=== PATIENT | male | born 1935 | race Caucasian/White ===

== ENCOUNTER → 2021-02-12 | Outpatient (CLI) | payer MEDICARE ==
--- NOTE | 2021-02-13 07:50 | RAD ---
INDICATION: Reason: LUMP ON TOP OF HEAD X20 YEARS / Spl. Instructions: GOLFBALL SIZED LUMP ON HEAD / History: COMPARISON: None. FINDINGS: Focused ultrasound images are obtained of the subcutaneous soft tissues of the scalp at the region of concern for lump. 39 x 34 x 20 mm heterogenous masslike structure is identified within the subcutaneous soft tissues wi th some echogenic foci within. IMPRESSION: * Masslike structure seen within the subcutaneous soft tissues of the scalp at the region of concer n with echogenic foci within which could be from calcifications. This has a nonspecific appearance wi th soft tissue neoplasm within the differential as well as alternative causes such as a very complex cystic mass given the lack of significant internal vascularity. If further imaging evaluation is lennox red MRI with and without contrast could BE obtained to better assess the internal architecture. Electronically signed by: Uriah Ellis MD (02/13/2021 7:48 AM) [id number]
== END ==
LOC: US 15:25
PROVIDERS: ATTEND Nurse Practitioner Adult Health
DX: R22.0 Localized swelling, mass and lump, head (principal)
CPT/HCPCS: 76881

== ENCOUNTER 2021-10-10 07:49 | Inpatient (IN) | payer MEDICARE ==
[~2021-10-10] VITALS: Ht 193 cm; Wt 80.5 kg
--- NOTE | 2021-10-10 08:03 | PHYS DOC ---
General Adult EDM: Chief Complaint: SHORTNESS OF BREATH HPI: HPI: Patient is a 86-year-old male coming in for fatigue and shortness of breath. Patient was seen by his primary care 5 days ago for a "cold" and prescribed medications. Patient states he is has been getting worse. Is not vaccinated gets Covid, denies any medical history but takes a "water pill" Review of Systems: Review of Systems: All other systems within normal limits except for as noted in the HPI Physical Exam: PE: Constitutional: Well developed, well nourished, no acute distress, non-toxic appearance. [] HENT: Normocephalic, atraumatic, bilateral external ears normal, nose normal. [] Eyes: PERRLA, conjunctiva normal, no discharge. [] Neck: No rigidity, supple, no stridor. [] Cardiovascular: Regular rate and rhythm, brisk cap refill [] Lungs & Thorax: Non labored symmetric respirations, no tachypnea or respiratory distress [] Abdomen: Soft, nondistended. Skin: Warm, dry, no erythema, no rash. [] Back: Unremarkable Extremities: No deformities, range of motion grossly intact, no lower extremity edema [] Neurologic: Alert and oriented X 3, no focal deficits noted. [] Psychologic: Affect normal, judgement normal, mood normal. [] EKG: EKG: [] Radiology/Procedures: Radiology/Procedures: [place] [address] IMAGING REPORT Signed PATIENT: YAMILET DAVIS ACCOUNT: [id number] : 1935 LOCATION: ER AGE: 86 SEX: M EXAM STATUS: REG ER ORD. PHYSICIAN: KENDRICK SAGASTUME MD REASON: pna PROCEDURE: CHEST AP ONLY EXAMINATION: XR CHEST 1V CLINICAL HISTORY: Pneumonia. EXAM DATE/TIME: 10/10/2021 8:21 AM COMPARISON: None FINDINGS: Lines, Tubes, and Devices: None. Cardiomediastinal Silhouette: Normal heart size. Aortic atherosclerotic calcification. Lungs and Pleura: Multifocal opacities in the mid to lower lung zones, greater on the right. Nonspecific focal left hilar opacity. No evidence of pleural effusion or pneumothorax. Bones and Soft Tissues: Degenerative changes in the thoracic spine. IMPRESSION: Bilateral multifocal airspace disease compatible with viral/atypical pneumonia, greater on the right. Nonspecific focal left hilar opacity, possibly related to enlarged pulmonary artery, hilar adenopathy, or mass. Nonemergent CT could be obtained for further evaluation as indicated. Electronically signed by: Singh Chatterjee DO (10/10/2021 8:50 AM) [facility]ENTERCHATTERJEE DICTATED AND SIGNED BY: SINGH CHATTERJEE DO DATE: 10/10/21846 CC: KENDRICK SAGASTUME MD; RUPERT VAN MD ~MTH0 0 [] Heart Score: C/O Chest Pain: N/A Risk Factors: Risk Factors: DM, Current or recent (<one month) smoker, HTN, HLP, family history of CAD, obesity. Risk Scores: Score 0 - 3: 2.5% MACE over next 6 weeks - Discharge Home Score 4 - 6: 20.3% MACE over next 6 weeks - Admit for Clinical Observation Score 7 - 10: 72.7% MACE over next 6 weeks - Early Invasive Strategies Course & Med Decision Making: Course & Med Decision Making Patient hypoxic with Covid pneumonia, mid to primary care provider, Dr. Sameer Cortez Disclaimer: Diego Disclaimer: This electronic medical record was generated, in whole or in part, using a voice recognition dictation system. Departure Departure: Impression: Primary Impression: COVID Disposition: ADMITTED INPATIENT Admitting Physician: Rupert Van Condition: GUARDED Referrals: RUPERT VAN MD (PCP) KENDRICK SAGASTUME MD Oct 10, 2021 08:03
[2021-10-10] MEDS ORDERED: AZITHROMYCIN 500 MG in IV NORMAL SALINE 250ML 250 ML IV ONE ×2 (08:30→12:30)
[2021-10-10] MEDS ORDERED: DEXAMETHASONE SOD PHOS 10 MG/ML VIAL. IV ONE (08:30)
[2021-10-10 08:46] LABS: BASO % 0 % (0-3); EOS % 0 % (0-3); HEMATOCRIT 46.1 % (39.0-53.0); HEMOGLOBIN 15.5 g/dL (13.0-17.5); LYMPH # 1.4 x10^3/uL (1.0-4.8); LYMPH % 23 % (24-48); MEAN CORPUSCULAR HEMOGLOBIN 31 pg (25-35); MEAN CORPUSCULAR HGB CONC 34 g/dL (31-37); MEAN CORPUSCULAR VOLUME 91 fL (79-100); MONO # 0.5 x10^3/uL (0.0-1.1); MONO % 8 % (0-9); NEUT # 4.2 x10^3uL (1.8-7.7); NEUT % 69 % (31-73); PLATELET COUNT 147 x10^3/uL (140-400); RED BLOOD COUNT 5.05 x10^6/uL (4.30-5.70); RED CELL DISTRIBUTION WIDTH 14.2 % (11.5-14.5); WHITE BLOOD COUNT 6.1 x10^3/uL (4.0-11.0)
--- NOTE | 2021-10-10 08:50 | EKG ---
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
--- NOTE | 2021-10-10 08:53 | RAD ---
EXAMINATION: XR CHEST 1V CLINICAL HISTORY: Pneumonia. EXAM DATE/TIME: 10/10/2021 8:21 AM COMPARISON: None FINDINGS: Lines, Tubes, and Devices: None. Cardiomediastinal Silhouette: Normal heart size. Aortic atherosclerotic calcification. Lungs and Pleura: Multifocal opacities in the mid to lower lung zones, greater on the right. Nonspeci fic focal left hilar opacity. No evidence of pleural effusion or pneumothorax. Bones and Soft Tissues: Degenerative changes in the thoracic spine. IMPRESSION: Bilateral multifocal airspace disease compatible with viral/atypical pneumonia, greater on the right. Nonspecific focal left hilar opacity, possibly related to enlarged pulmonary artery, hilar adenopathy , or mass. Nonemergent CT could be obtained for further evaluation as indicated. Electronically signed by: Singh Keen DO (10/10/2021 8:50 AM) EL
[2021-10-10 08:58] LABS: INFLUENZA A PATIENT NEGATIVE (NEGATIVE); INFLUENZA B PATIENT NEGATIVE (NEGATIVE)
[2021-10-10] MEDS ORDERED: IV NORMAL SALINE 50ML 50 ML ONE (09:02)
[2021-10-10] MEDS ORDERED: AZITHROMYCIN 500 MG VIAL. IV ONE ×2 (09:02→09:08)
[2021-10-10] MEDS ORDERED: cefTRIAXone SODIUM 1 GM VIAL ONE (09:02)
[2021-10-10] MEDS ORDERED: IV NORMAL SALINE 250ML 250 ML ONE ×2 (09:02→09:07)
[2021-10-10 09:08] LABS: ALBUMIN 3.5 g/dL (3.4-5.0); CALCIUM 8.3 mg/dL (8.5-10.1); CREATININE 1.1 mg/dL (0.7-1.3); GFR 63.5; MAGNESIUM 2.2 mg/dL (1.8-2.4); TOTAL BILIRUBIN 0.7 mg/dL (0.2-1.0); TOTAL PROTEIN 6.9 g/dL (6.4-8.2)
[2021-10-10] MEDS ORDERED: IV RINGERS SOLUTION,LACTATED 1,000 ML IV ONE (09:45)
[2021-10-10] MEDS ORDERED: ACETAMINOPHEN 325 MG TABLET PO PRN (09:45)
[2021-10-10] MEDS ORDERED: ONDANSETRON PF 4 MG/2 ML VIAL. IVP PRN (09:45)
[2021-10-10] MEDS ORDERED: REMDESIVIR LOAD in IV NORMAL SALINE 250ML TV IV ONE (10:00)
[2021-10-10] MEDS: IV NORMAL SALINE 1,000ML 1,000 ML IV SCH (10:53)
[2021-10-10] MEDS: POTASSIUM CHLORIDE 20MEQ 100 ML IV SCH ×2 (10:55→14:10)
[2021-10-10] MEDS: IPRATROPIUM/ALBUTEROL 20/100mcg/INH INHALER. INH SCH ×3 (11:46→20:00)
[2021-10-10 12:54] LABS: BILIRUBIN,URINE NEG (NEG); CLARITY,URINE CLEAR; COLOR,URINE YELLOW; GLUCOSE,URINE NEG (NEG); UROBILINOGEN,URINE 0.2 mg/dL (0.2 mg/dL)
[2021-10-10 12:55] LABS: BACTERIA,URINE 0 /HPF (0-FEW); NITRITE,URINE NEG (NEG); RBC,URINE OCC /HPF (0-2); WBC,URINE OCC /HPF (0-4)
[2021-10-10] MEDS ORDERED: ELECTROLYTE (NON-ICU) PROTOCOL. MC PRN (19:00)
--- NOTE | 2021-10-11 01:38 | HP ---
DATE OF SERVICE: 10/10/2021 ADMIT DATE: 10/10/2021 HISTORY OF PRESENT ILLNESS: This 86-year-old male came in with increased shortness of breath. The patient has been having problems with a pneumonic process and he apparently is positive for COVID. The patient had been treated with outpatient Rocephin and doxycycline, but with no relief. The patient got increasingly worse and came in through the Emergency Room, apparently was markedly hypoxic and was down as far as 90% on 15 liters per face mask. The patient was admitted ____ for exacerbation of acute respiratory failure secondary to COVID-19 pneumonia. PAST MEDICAL HISTORY: Hypertension. He has refused his COVID shots in the past. ALLERGIES: No known allergies. SOCIAL HISTORY: The patient has a distant history of smoking, occasional alcohol use. FULL CODE. REVIEW OF SYSTEMS: The patient denies any headaches, visual change, blurred vision, double vision. Denies chest pain, but does have marked shortness of breath with minimal exertion. The patient denies any abdominal pain. Denies any nausea, vomiting, melena, hematochezia, hematemesis and neurologically baseline for this individual. PHYSICAL EXAMINATION: GENERAL: Pleasant white male. VITAL SIGNS: Blood pressure 138/80, respiratory rate 24, pulse 90, oxygen saturation on 15 liters at 95. HEENT: The patient's otherwise head was atraumatic, normocephalic. Eyes: PERRLA without jaundice. The mouth and throat were normal. NECK: Supple. LUNGS: Diminished, poor breath sounds throughout, particularly in the right lower lobe, coarse breath sounds. CARDIOVASCULAR: Regular sinus rhythm. ABDOMEN: Soft, nontender. EXTREMITIES: No clubbing, cyanosis or edema. NEUROLOGIC: Alert and oriented x 3. LABORATORY DATA: The patient's white count 6, hemoglobin 15 and hematocrit 46. Sodium and potassium 136 and 3 (NC), glucose 103, otherwise basically unremarkable. Lactic acid within range. Serology positive for COVID. IMPRESSION: COVID-19 pneumonia with acute respiratory failure. Continue to monitor the patient ____ make further evaluation on him as indicated. PJC/EKT/AIME DR: SILVESTRE/florencia TID: [id number]
[2021-10-11 09:00] LABS: ALBUMIN 3.1 g/dL (3.4-5.0); ALBUMIN/GLOBULIN RATIO 0.9 (1.0-1.7); CALCIUM 7.9 mg/dL (8.5-10.1); CREATININE 0.7 mg/dL (0.7-1.3); GFR 106.9; TOTAL BILIRUBIN 0.6 mg/dL (0.2-1.0); TOTAL PROTEIN 6.5 g/dL (6.4-8.2)
[2021-10-11 09:20] LABS: POTASSIUM 4.1 mmol/L (3.5-5.1)
[2021-10-11] MEDS ORDERED: PIP/TAZO PER PHARMACY MC PRN (09:30)
[2021-10-11] MEDS ORDERED: DIGOXIN IV 500 MCG/2 ML AMPUL. IV ONE (09:30)
[2021-10-11] MEDS: IPRATROPIUM/ALBUTEROL 20/100mcg/INH INHALER. INH SCH ×4 (09:45→20:10)
[2021-10-11] MEDS: REMDESIVIR 100mg in NORMAL SALINE 250ML X 4 DAYS IV SCH (09:58)
[2021-10-11] MEDS ORDERED: AZITHROMYCIN 250 MG in IV NORMAL SALINE 250ML 250 ML IV SCH (10:00)
[2021-10-11] MEDS: IV NORMAL SALINE 1,000ML 1,000 ML IV SCH ×5 (10:04→20:02)
[2021-10-11] MEDS ORDERED: IV NORMAL SALINE 50ML 50 ML ONE ×2 (10:09→18:49)
[2021-10-11] MEDS ORDERED: PIPERACILLIN/TAZOBACTAM 3.375 GM VIAL IV ONE ×2 (10:09→18:49)
[2021-10-11] MEDS ORDERED: ENOXAPARIN 40 MG/0.4 ML SYRINGE. SQ ONE (10:09)
[2021-10-11] MEDS: DEXAMETHASONE SOD PHOS 4 MG/ML VIAL. IVP SCH ×2 (10:16→18:58)
[2021-10-11] MEDS ORDERED: AZITHROMYCIN 500 MG VIAL. IV ONE (10:33)
[2021-10-11] MEDS ORDERED: IV NORMAL SALINE 250ML 250 ML ONE (10:33)
[2021-10-11] MEDS: ENOXAPARIN ** NOTE DOSE ** SYRINGE SQ SCH ×2 (10:53→21:02)
[2021-10-11] MEDS: PIPERACILLIN/TAZOBACTAM 3.375 GM in IV NORMAL SALINE 50ML 50 ML IV SCH ×2 (10:57→19:02)
[2021-10-11] MEDS: AZITHROMYCIN 500 MG in IV NORMAL SALINE 250ML 250 ML IV SCH (12:11)
--- NOTE | 2021-10-11 19:00 | NUR ---
Assumed care of pt at this time. Pt an ER hold in isolation suite, pending available bed at the hospital. Report received from Ermelinda LANTIGUA. Pt assessed, reports feeling somewhat better. Pt remains on supplemental O2 at 15L via NRB, sating low 90's. Pt up to bedside to void in urinal. Pt tolerated fair with O2 desat into the mid-80's but recovered to low-90's within minutes after returning to cot. Side rails up for safety. Call light in reach.
[2021-10-11 20:11] VITALS: BP 109/71
[2021-10-11] MEDS ORDERED: ENOXAPARIN 40 MG/0.4 ML SYRINGE. SQ SCH (21:00)
--- NOTE | 2021-10-11 23:30 | NUR ---
Report given to Christie, ED RN. She assumed care of pt at this time.
[2021-10-12] MEDS ORDERED: PIPERACILLIN/TAZOBACTAM 3.375 GM VIAL IV ONE ×5 (00:24→18:33)
[2021-10-12] MEDS ORDERED: IV NORMAL SALINE 50ML 50 ML ONE ×4 (00:24→18:33)
[2021-10-12] MEDS: PIPERACILLIN/TAZOBACTAM 3.375 GM in IV NORMAL SALINE 50ML 50 ML IV SCH ×4 (00:52→18:49)
[2021-10-12] MEDS: DEXAMETHASONE SOD PHOS 4 MG/ML VIAL. IVP SCH ×4 (00:53→18:46)
[2021-10-12] MEDS: IV NORMAL SALINE 1,000ML 1,000 ML IV SCH ×5 (01:00→20:59)
--- NOTE | 2021-10-12 05:23 | PN ---
SUBJECTIVE: An 86-year-old gentleman in with COVID-19 pneumonia. The patient is still down in the ICU at the ER. The patient is breathing a little bit better. He has been changed over to Zosyn and Zithromax because of extension of his pneumonic process secondary to COVID-19. He had not been vaccinated. OBJECTIVE: VITAL SIGNS: Blood pressure 130/70, respiratory rate 30, pulse 90, has been as high as 153, went into atrial fibrillation with rapid ventricular response, but with digitalis is converted back into rhythm. His blood pressure has come up from 86/68, respiratory rate 20, pulse 116. Presently, he is afebrile. He is on 15 liters, 94% nonrebreather mask. GENERAL: The patient is alert and oriented. LUNGS: Diminished, primarily in the right lower lobe. CARDIOVASCULAR: Regular sinus rhythm presently, although this morning was atrial fibrillation with rapid ventricular response. ABDOMEN: Soft. EXTREMITIES: No clubbing, cyanosis, nor edema. The patient will be continued to be monitored carefully. The patient has made himself a no code and will make further evaluation on him as indicated. IMPRESSION: Therefore, COVID-19 pneumonia with respiratory failure. PLAN: The patient continued to be monitored carefully and try to get him bed up in the ____. The patient otherwise will be monitored carefully. Continue on IV antibiotic therapy, aggressive therapy as well as remdesivir. The patient also continue to monitor his atrial fibrillation with rapid ventricular response, which is converted, basically, sepsis, continue on IV antibiotic therapy, not vaccinated COVID-19, moderate protein malnutrition. Continue to monitor him accordingly in the ICU down at the ER. SILVESTRE/ARCHIE/ROM DR: SILVESTRE/florencia TID: [id number]
[2021-10-12] MEDS: IPRATROPIUM/ALBUTEROL 20/100mcg/INH INHALER. INH SCH ×4 (07:52→20:00)
[2021-10-12] MEDS ORDERED: ALBUTEROL SULFATE 2.5 MG/3 ML NEBU. NEB ONE (09:15)
[2021-10-12] MEDS ORDERED: FUROSEMIDE 40 MG/4 ML VIAL ONE (09:18)
[2021-10-12] MEDS ORDERED: FUROSEMIDE 40 MG/4 ML VIAL IVP ONE (09:30)
[2021-10-12] MEDS: REMDESIVIR 100mg in NORMAL SALINE 250ML X 4 DAYS IV SCH (11:21)
[2021-10-12] MEDS ORDERED: AZITHROMYCIN 500 MG VIAL. IV ONE ×2 (11:50→12:07)
[2021-10-12] MEDS ORDERED: IV NORMAL SALINE 250ML 250 ML ONE ×2 (11:50→12:07)
[2021-10-12] MEDS: ENOXAPARIN ** NOTE DOSE ** SYRINGE SQ SCH ×2 (11:55→22:59)
[2021-10-12] MEDS: AZITHROMYCIN 500 MG in IV NORMAL SALINE 250ML 250 ML IV SCH (12:03)
[2021-10-12] MEDS ORDERED: ATROPINE 0.5 MG/5 ML DISP.SYRIN. IV PRN (15:45)
[2021-10-12] MEDS ORDERED: IV NORMAL SALINE 500ML 500 ML IV PRN (15:45)
[2021-10-12 16:07] LABS: BASO % 0 % (0-3); EOS % 0 % (0-3); HEMATOCRIT 43.5 % (39.0-53.0); HEMOGLOBIN 14.5 g/dL (13.0-17.5); LYMPH # 0.7 x10^3/uL (1.0-4.8); LYMPH % 8 % (24-48); MEAN CORPUSCULAR HEMOGLOBIN 31 pg (25-35); MEAN CORPUSCULAR HGB CONC 33 g/dL (31-37); MEAN CORPUSCULAR VOLUME 93 fL (79-100); MONO # 0.9 x10^3/uL (0.0-1.1); MONO % 9 % (0-9); NEUT # 7.7 x10^3uL (1.8-7.7); NEUT % 83 % (31-73); PLATELET COUNT 230 x10^3/uL (140-400); RED BLOOD COUNT 4.68 x10^6/uL (4.30-5.70); RED CELL DISTRIBUTION WIDTH 14.4 % (11.5-14.5); WHITE BLOOD COUNT 9.3 x10^3/uL (4.0-11.0)
[2021-10-12] MEDS: DEXMEDETOMIDINE 400 MCG in IV NORMAL SALINE 100ML 96 ML IV PRN (16:14)
[2021-10-12 16:19] LABS: CALCIUM 7.9 mg/dL (8.5-10.1); CREATININE 0.9 mg/dL (0.7-1.3); POTASSIUM 3.4 mmol/L (3.5-5.1)
--- NOTE | 2021-10-12 17:53 | RAD ---
XR CHEST 1V History: Reason: INCREASED CONFUSION / Spl. Instructions: / History: Comparison: October 10, 2021 Findings: Hyperinflation with emphysematous changes. Multifocal opacities bilaterally, decreased within the rig ht midlung increased within the left lower lung. No pleural effusion. No pneumothorax. Unchanged hear t size. Unchanged left hilar opacity, most likely vascular. Impression: 1. Multifocal pulmonary opacities bilaterally, decreased within the right midlung and increased with in the left lower lung. Electronically signed by: Tomas Khanna DO (10/12/2021 5:50 PM) [facility]ENTERAUGUST
[2021-10-12 19:35] VITALS: BP 93/65
[2021-10-12 19:39] VITALS: BP 86/62
--- NOTE | 2021-10-12 23:26 | PN ---
SUBJECTIVE: The patient is an 86-year-old male in ICU down in the ER. We have been trying to transfer the patient. Other facilities are on diversion and although he has been accepted, he has not been able to be transferred because of the lack of nursing conditions at their facilities. Otherwise, the patient became markedly agitated today and pulled out his IV and facemask. He was on BiPAP to keep his oxygen saturation in the low 90s. Apparently, not able to move up the hill because of the BiPAP. In any case, the patient is being placed on a Precedex drip because of his agitation. He was not controlled with Ativan, so we put him on Precedex drip. The patient otherwise is resting fairly comfortably with this medication. He has been made a DNR and that has been changed. He has written in his own hand and told me that it is what he wanted. At 86, this is reasonable. The patient's x-ray on one hand shows some improvement to the infection on the right, but apparently there is more infection in the left lower lobe itself. So, continue on Zosyn, switched over from azithromycin to Levaquin. The patient's chest x-ray overall does look somewhat improved from previous x-rays and some areas are slightly worse than others. He is on BiPAP as noted. Blood pressure 135/74, respiratory rate 26, pulse 90, afebrile. He is on BiPAP and will continue to be monitored carefully to try to get him into another ICU if possible. Also discussed with him the need for possible hospice care if that is what he desires. His SARS test was positive as noted. IMPRESSION: Acute on top of chronic respiratory failure with pneumonia, bilateral lobe, multifactorial; COVID-19 pneumonia causing acute respiratory failure, sepsis. The patient to continue in the ICU down here in the Emergency Room. As noted above, double antibiotics, Precedex to keep him under control, BiPAP. Serious situation. The patient has been made a DNR. BRYAN DR: SILVESTRE/florencia TID: [id number]
[2021-10-12] MEDS ORDERED: IV NORMAL SALINE 1,000ML 1,000 ML IV SCH (23:30)
[2021-10-13] MEDS ORDERED: IV NORMAL SALINE 50ML 50 ML ONE ×4 (00:04→18:34)
[2021-10-13] MEDS ORDERED: PIPERACILLIN/TAZOBACTAM 3.375 GM VIAL IV ONE ×4 (00:04→18:35)
[2021-10-13] MEDS: PIPERACILLIN/TAZOBACTAM 3.375 GM in IV NORMAL SALINE 50ML 50 ML IV SCH ×4 (00:09→18:38)
[2021-10-13] MEDS: DEXAMETHASONE SOD PHOS 4 MG/ML VIAL. IVP SCH ×4 (00:10→18:38)
[2021-10-13] MEDS: IV NORMAL SALINE 1,000ML 1,000 ML IV SCH ×4 (02:00→18:32)
[2021-10-13] MEDS: DEXMEDETOMIDINE 400 MCG in IV NORMAL SALINE 100ML 96 ML IV PRN (04:38)
[2021-10-13] MEDS: IPRATROPIUM/ALBUTEROL 20/100mcg/INH INHALER. INH SCH ×4 (09:10→20:00)
[2021-10-13 09:44] LABS: BGAS PH 7.46 (7.35-7.46)
[2021-10-13 10:20] LABS: BASO % 0 % (0-3); EOS % 0 % (0-3); HEMATOCRIT 35.8 % (39.0-53.0); HEMOGLOBIN 11.8 g/dL (13.0-17.5); LYMPH # 0.7 x10^3/uL (1.0-4.8); LYMPH % 7 % (24-48); MEAN CORPUSCULAR HEMOGLOBIN 31 pg (25-35); MEAN CORPUSCULAR HGB CONC 33 g/dL (31-37); MEAN CORPUSCULAR VOLUME 93 fL (79-100); MONO # 0.7 x10^3/uL (0.0-1.1); MONO % 7 % (0-9); NEUT # 8.7 x10^3uL (1.8-7.7); NEUT % 86 % (31-73); PLATELET COUNT 214 x10^3/uL (140-400); RED BLOOD COUNT 3.87 x10^6/uL (4.30-5.70); RED CELL DISTRIBUTION WIDTH 14.3 % (11.5-14.5); WHITE BLOOD COUNT 10.1 x10^3/uL (4.0-11.0)
[2021-10-13 10:23] LABS: CALCIUM 7.2 mg/dL (8.5-10.1); CREATININE 0.7 mg/dL (0.7-1.3); GFR 106.9; POTASSIUM 3.2 mmol/L (3.5-5.1)
[2021-10-13] MEDS: ENOXAPARIN ** NOTE DOSE ** SYRINGE SQ SCH (10:28)
[2021-10-13] MEDS: REMDESIVIR 100mg in NORMAL SALINE 250ML X 4 DAYS IV SCH (10:28)
[2021-10-13] MEDS: IPRATRPIUM/ALBUTEROL 0.5/2.5MG 3 ML NEBU. NEB SCH ×3 (12:04→22:58)
--- NOTE | 2021-10-13 23:02 | PN ---
SUBJECTIVE: An 86-year-old gentleman in with COVID-19 pneumonia and respiratory failure. He continues on BiPAP and CPAP. He does well with that. According to the respiratory therapist when he comes off it, however, he drops down into 70% range. The patient basically cannot answer any questions as he continues to have problems obviously with the BiPAP on and unable to communicate. OBJECTIVE: VITAL SIGNS: Blood pressure 102/66, respiratory rate 20, pulse 60, afebrile, 100% on BiPAP. GENERAL: The patient has had marked agitation and unfortunately has been pulling out various lines, was placed on Precedex and low dose Ativan to control his agitation. The patient has been sedated mildly with these medications, maintaining fairly good blood pressure. The patient otherwise notes he has not made very much in the way of progress. He has made himself a DNR. Discussed with family, they are considering putting him on hospice and that has been notified for him. The patient otherwise continued here in the ICU at [facility] in the Emergency Room on BiPAP. Arousable. EYES: PERRLA. LUNGS: Diminished, primarily in the right lower lobe, rhonchi. CARDIOVASCULAR: Regular sinus rhythm. ABDOMEN: Soft, nontender. EXTREMITIES: No clubbing, cyanosis, nor edema. NEUROLOGIC: The patient, as noted, is markedly sedated with medication. IMPRESSION: Acute on top of chronic respiratory failure with pneumonia, bilateral lobe infection, COVID-19 pneumonia causing acute respiratory failure and sepsis. PLAN: Continue on BiPAP here in the ICU of the Emergency Room. He is on double antibiotics, Precedex and Ativan. Family has been notified of the seriousness of his condition. DEWEY DR: Meli TID: [id number]
[2021-10-14] MEDS: ENOXAPARIN ** NOTE DOSE ** SYRINGE SQ SCH ×2 (00:20→11:22)
[2021-10-14] MEDS ORDERED: IV NORMAL SALINE 50ML 50 ML ONE ×3 (01:45→18:20)
[2021-10-14] MEDS ORDERED: PIPERACILLIN/TAZOBACTAM 3.375 GM VIAL IV ONE ×3 (01:45→18:20)
[2021-10-14] MEDS: IV NORMAL SALINE 1,000ML 1,000 ML IV SCH ×2 (02:00→07:21)
[2021-10-14] MEDS: PIPERACILLIN/TAZOBACTAM 3.375 GM in IV NORMAL SALINE 50ML 50 ML IV SCH ×4 (02:01→18:31)
[2021-10-14] MEDS: DEXAMETHASONE SOD PHOS 4 MG/ML VIAL. IVP SCH ×4 (03:11→18:31)
[2021-10-14] MEDS: IPRATRPIUM/ALBUTEROL 0.5/2.5MG 3 ML NEBU. NEB SCH ×4 (04:55→22:57)
[2021-10-14] MEDS: IPRATROPIUM/ALBUTEROL 20/100mcg/INH INHALER. INH SCH ×4 (04:55→20:00)
[2021-10-14 10:35] LABS: BASO % 0 % (0-3); EOS % 0 % (0-3); HEMATOCRIT 30.4 % (39.0-53.0); LYMPH # 0.5 x10^3/uL (1.0-4.8); LYMPH % 4 % (24-48); MEAN CORPUSCULAR HEMOGLOBIN 30 pg (25-35); MEAN CORPUSCULAR HGB CONC 33 g/dL (31-37); MEAN CORPUSCULAR VOLUME 92 fL (79-100); MONO # 0.8 x10^3/uL (0.0-1.1); MONO % 7 % (0-9); NEUT # 11.3 x10^3uL (1.8-7.7); NEUT % 90 % (31-73); PLATELET COUNT 239 x10^3/uL (140-400); RED BLOOD COUNT 3.29 x10^6/uL (4.30-5.70); RED CELL DISTRIBUTION WIDTH 13.9 % (11.5-14.5); WHITE BLOOD COUNT 12.6 x10^3/uL (4.0-11.0)
[2021-10-14 10:48] LABS: CALCIUM 7.1 mg/dL (8.5-10.1); CREATININE 0.8 mg/dL (0.7-1.3); GFR 91.7
[2021-10-14 10:50] LABS: POTASSIUM 2.8 mmol/L (3.5-5.1)
[2021-10-14] MEDS ORDERED: REMDESIVIR 100mg in NORMAL SALINE 250ML X 4 DAYS IV SCH (11:00)
[2021-10-14] MEDS: POTASSIUM CL 20MEQ IN D5W 1,000 ML IV SCH ×2 (11:27→19:19)
[2021-10-14] MEDS: REMDESIVIR 100mg in NORMAL SALINE 250ML X 4 DAYS IV SCH (14:31)
[2021-10-15] MEDS: ENOXAPARIN ** NOTE DOSE ** SYRINGE SQ SCH ×2 (00:41→13:15)
[2021-10-15] MEDS ORDERED: PIPERACILLIN/TAZOBACTAM 4.5 GM VIAL IV ONE (00:46)
[2021-10-15] MEDS ORDERED: PIPERACILLIN/TAZOBACTAM 3.375 GM VIAL IV ONE ×4 (00:49→18:19)
[2021-10-15] MEDS ORDERED: IV NORMAL SALINE 50ML 50 ML ONE ×4 (00:49→18:19)
[2021-10-15] MEDS: DEXAMETHASONE SOD PHOS 4 MG/ML VIAL. IVP SCH ×4 (01:00→18:24)
[2021-10-15] MEDS: POTASSIUM CL 20MEQ IN D5W 1,000 ML IV SCH ×2 (02:29→10:45)
[2021-10-15] MEDS: IPRATROPIUM/ALBUTEROL 20/100mcg/INH INHALER. INH SCH ×3 (05:57→15:55)
[2021-10-15] MEDS: IPRATRPIUM/ALBUTEROL 0.5/2.5MG 3 ML NEBU. NEB SCH ×2 (05:57→12:00)
[2021-10-15] MEDS: PIPERACILLIN/TAZOBACTAM 3.375 GM in IV NORMAL SALINE 50ML 50 ML IV SCH ×4 (06:00→18:24)
--- NOTE | 2021-10-15 09:08 | PN ---
DATE: 10/14/2021 SUBJECTIVE: An 86-year-old gentleman came in with COVID-19 pneumonia, has had [id number] respiratory distress. The patient still remains on BiPAP. His potassium was low. He has been placed on an electrolyte replacement to help him with his potassium deficiency. The patient is arousable, although he is on a BiPAP and he continues to make slow, steady progress. Without the BiPAP, his oxygen saturation drops precipitously and as a result of this patient's family wishes the patient go on to hospice. He has been using Precedex and lorazepam. The patient has also received his doses after visit here for his COVID-19 pneumonia. He is getting breathing treatments and that seems to help somewhat with his oxygenation. OBJECTIVE: VITAL SIGNS: temperature does not seem to be recorded. Presently on BiPAP, CPAP at 100%, blood pressure 144/99, respiratory rate 24, pulse 96. GENERAL: The patient otherwise has a BiPAP on. LUNGS: Diminished, but basically clear. CARDIOVASCULAR: Regular sinus rhythm. ABDOMEN: Soft, nontender, no rebound or guarding. Positive bowel sounds. EXTREMITIES: No clubbing, cyanosis, nor edema. Some musculoskeletal wasting. Tried to get him on a nutritional intake. The family has decided to place him on hospice. He continues here in the ICU in ER Hold. ____ acute on top of chronic respiratory failure with pneumonia, bilateral lobe pneumonia, COVID-19 pneumonia, causing acute respiratory failure, sepsis, hypokalemia, hypernatremia, severe protein malnutrition, hypertension. NAYELI/ROM DR: Meli TID: [id number]
[2021-10-15] MEDS ORDERED: LORA2VIA IVP (13:07)
[2021-10-15] MEDS ORDERED: [UNRECOGNIZED DRUG - CODE] IV (13:07)
[2021-10-15] MEDS ORDERED: IPRA4AER INH (13:07)
[2021-10-15] MEDS ORDERED: IPRA3AMP29 NEB (13:07)
[2021-10-15] MEDS: DEXMEDETOMIDINE 400 MCG in IV NORMAL SALINE 100ML 96 ML IV PRN (19:01)
[2021-10-15] MEDS ORDERED: MORPHINE SULFATE 2 MG/ML DISP.SYRIN. ONE (19:09)
[2021-10-15 19:30] VITALS: BP 100/52
[2021-10-15] MEDS ORDERED: MORPHINE SULFATE 2 MG/ML DISP.SYRIN. IV ONE (19:45)
== END 2021-10-15 19:46 | disposition hospice, home (50) | DRG 871 ==
LOC: ER 07:49 → ER HOLD 09:38 → LND 10-12 11:59 → ER HOLD 10-12 12:26
PROVIDERS: ADMIT Family Medicine; ATTEND Family Medicine
PROC: 5A0935A Assistance with Respiratory Ventilation, Less than 24 Consecutive Hours, High Flow/Velocity Cannula (ICD-10-PCS; 2021-10-10)
PROC: 5A09457 Assistance with Respiratory Ventilation, 24-96 Consecutive Hours, Continuous Positive Airway Pressure (ICD-10-PCS; principal; 2021-10-12)
PROC: 5A0935A Assistance with Respiratory Ventilation, Less than 24 Consecutive Hours, High Flow/Velocity Cannula (ICD-10-PCS; 2021-10-12)
PROC: XW033E5 Introduction of Remdesivir Anti-infective into Peripheral Vein, Percutaneous Approach, New Technology Group 5 (ICD-10-PCS; 2021-10-14)
DX: A41.89 Other specified sepsis (principal); J12.82 Pneumonia due to coronavirus disease 2019; J96.21 Acute and chronic respiratory failure with hypoxia; U07.1 COVID-19; E43 Unspecified severe protein-calorie malnutrition; E87.0 Hyperosmolality and hypernatremia; E87.6 Hypokalemia; I10 Essential (primary) hypertension; I48.91 Unspecified atrial fibrillation; I49.3 Ventricular premature depolarization; Z51.5 Encounter for palliative care; Z66 Do not resuscitate; Z87.891 Personal history of nicotine dependence; Z68.21 Body mass index [BMI] 21.0-21.9, adult
CPT/HCPCS: 36415; 36600; 71045; 80048; 80053; 81001; 82803; 83605; 83735; 83880; 84100; 84484; 85025; 87040; 87205; 87426; 87804; 93005; 94640; 94660; J0456; J0696; J1100; J1160; J1650; J1940; J1956; J2060; J2270; J2405; J2543; J3010; J3480; J3490; J7042; J7050; J7120; U0003; 94664; 99285-25; J7030; J7613